=== PATIENT | female | born 1985 | race Caucasian/White ===

== ENCOUNTER 2017-05-31 13:53 | Outpatient (CLI) | payer BC ==
[~2017-05-31] VITALS: Ht 167.6 cm; Wt 81.8 kg
[2017-05-31 14:15] VITALS: BP 106/62
[2017-05-31] MEDS ORDERED: PREN1TAB60 PO (14:15)
== END 2017-05-31 15:50 | disposition home or self-care (01) ==
LOC: LDOP 13:53
PROVIDERS: ATTEND Obstetrics & Gynecology
DX: O46.93 Antepartum hemorrhage, unspecified, third trimester (principal); O26.853 Spotting complicating pregnancy, third trimester; O34.83 Maternal care for other abnormalities of pelvic organs, third trimester; E28.2 Polycystic ovarian syndrome; Z3A.30 30 weeks gestation of pregnancy
CPT/HCPCS: 59025; 99201; G0463